=== PATIENT | female | born 1945 | race Caucasian/White ===

== ENCOUNTER 2023-10-16 06:59 | Day surgery (SDC) | payer MEDICARE, BC ==
[2023-10-16] MEDS ORDERED: Sodium Chloride 0.9% 10 ML Syringe FLUSH PRN (07:00)
[2023-10-16] MEDS ORDERED: Sodium Chloride 0.9% 10 ML Syringe FLUSH SCH (07:00)
[2023-10-16] MEDS: Lactated Ringers 1,000 ML IV SCH (07:30)
[2023-10-16] MEDS ORDERED: Lidocaine 1% 4 ML ONE (07:59)
[2023-10-16] MEDS ORDERED: Propofol 200 MG/20 ML SDV ONE (07:59)
== END 2023-10-16 09:15 | disposition home or self-care (01) ==
LOC: JD.SDS 06:59
PROVIDERS: ATTEND Surgery
DX: Z12.11 Encounter for screening for malignant neoplasm of colon (principal); R19.5 Other fecal abnormalities; E78.5 Hyperlipidemia, unspecified; E03.9 Hypothyroidism, unspecified; D64.9 Anemia, unspecified; Z79.890 Hormone replacement therapy; Z79.899 Other long term (current) drug therapy; Z91.09 Other allergy status, other than to drugs and biological substances
CPT/HCPCS: G0121; J2704; J7120; J3490